=== PATIENT | female | born 1990 | race Caucasian/White ===

== ENCOUNTER → 2020-11-02 | Emergency (ER) | payer BC ==
[~2020-11-02] VITALS: Ht 165.1 cm; Wt 59.0 kg
[~2020-11-02] MED LIST: KETOROLAC TROMETHAMINE 60 MG/2 ML VIAL IM ONE
[2020-11-02 14:26] VITALS: BP_SYST 123
--- NOTE | 2020-11-02 14:26 | NUR ---
Patient triaged and placed in waiting room. VSS and patient appears in no acute distress at this time. Accompanied by SELF, awaiting available bed, and MD notified of need for MSE.
--- NOTE | 2020-11-02 14:30 | NUR ---
Pt brought by self, A&Ox4, pt presents to ER with chest wall pain increasing after bending over , denies trauma , skin pink and warm , cap refill <3, respirations even and unlabored, will cont to monitor.
--- NOTE | 2020-11-02 14:45 | NUR ---
Dr Rogers evaluating patient at bedside
[2020-11-02 16:19] VITALS: BP_SYST 123
--- NOTE | 2020-11-02 16:20 | NUR ---
Patient given written and verbal discharge instructions and verbalizes understanding. ER MD discussed with patient the results and treatment provided. Patient in stable condition. ID arm band removed. No Rx given. Patient educated on pain management and to follow up with PMD. Pain Scale 2/10 . Opportunity for questions provided and answered. Medication side effect fact sheet provided.
== END | disposition home or self-care (01) ==
LOC: SED 14:26
DX: R07.89 Other chest pain (principal); Z88.0 Allergy status to penicillin
CPT/HCPCS: 81025; 93005; 96372; 99283; J1885